=== PATIENT | female | born 1950 | race Caucasian/White ===

== ENCOUNTER → 2017-11-27 | Outpatient (CLI) | payer MEDICARE ==
--- NOTE | 2017-11-27 16:35 | BD ---
EXAMINATION TYPE: MG DEXA axial skeleton. DATE OF EXAM: 11/27/2017 COMPARISON: NONE CLINICAL HISTORY: 67 YR OLD FEMALE......ICD-10 CODE: Z13.820 POST MENOPAUSE W/O HRT Height: 61.5 Weight: 167 FRAX RISK QUESTIONS: Alcohol (3 or more units per day): NO Family History (Parent hip fracture): YES HX, UNKNOWN IF FX Glucocorticoids (More than 3mos): NO (Ex: prednisone, prednisolone, methylprednisolone, dexamethasone, and hydrocortisone). History of Fracture in Adulthood: YES Secondary Osteoporosis: NO 1. Type 1 Diabetes: NO 2. Hyperthyroidism: NO 3. Menopause before 45: NO 4. Malnutrition: NO 5. Chronic liver disease: NO Rheumatoid Arthritis: NO Current Tobacco Use: NO RISK FACTORS HISTORY OF: BOTH WRISTS AT AGE 65 YRS OLD History of Wrist Fracture: YES BOTH When: 2016 Family History of Osteoporosis: YES, HER AUNT, UNSURE ABOUT HIP FX Active: YES Diet low in dairy products/other sources of calcium: NO Postmenopausal woman: 54 YRS OLD Take estrogen and/or progesterone medications: HRT X12 YRS....LAST TAKEN 1 1/2 YRS AGO How lon YRS Hyperparathyroidism: NO Adrenal Insufficiency: NO MEDICATIONS: Additional Medications: ALDO STAT OTC SUPPLEMENT, Additional History: NONE TO NOTE, ARTHRITIS EXAM MEASUREMENTS: Bone mineral densitometry was performed using the [employer] System. Bone mineral density as measured about the Lumbar spine is: ----- L1-L4(G/cm2): 1.037 T Score Values are as follows: ----- L1: -2.1 ----- L2: -1.5 ----- L3: -0.9 ----- L4: -0.7 ----- L1-L4: -1.2 Bone mineral density FIRST BONE DENSITY STUDY AT [facility] Bone mineral density about the R hip (g/cm2): 0.897 Bone mineral density about the L hip (g/cm2): 0.956 T Score values are as follows: -----R Neck: -1.3 -----L Neck: -1.5 -----R Total: -0.9 -----L Total: -0.4 Bone mineral density NEW TO [facility] FRAX%S: THERE IS A 15.1% CHANCE OF A MAJOR OSTEOPOROTIC FX AND A 1.9% FOR HIP....PROBABILITY OF FX IN 10 YRS TIME IMPRESSION: Osteopenia (T Score between -2.5 and -1 as noted by T score values There is slightly increased risk of fracture and the patient may be considered for treatment. Re-Screen 2-5 years. NOTE: T-SCORE=SD OF THE YOUNG ADULT MEAN.
--- NOTE | 2017-12-03 13:46 | MM ---
Reason for exam: screening (asymptomatic). Last mammogram was performed 20 years and 3 months ago. Physical Findings: A clinical breast exam by your physician is recommended on an annual basis and results should be correlated with mammographic findings. MG 3D Screening Mammo W/Cad Bilateral CC and MLO view(s) were taken. No prior studies available for comparison. There are scattered fibroglandular densities. There is no discrete abnormality. ASSESSMENT: Negative, BI-RAD 1 RECOMMENDATION: Routine screening mammogram of both breasts in 1 year.
== END ==
LOC: RADMAMWWP 12:53
PROVIDERS: ATTEND Obstetrics & Gynecology
DX: Z12.31 Encounter for screening mammogram for malignant neoplasm of breast (principal); Z13.820 Encounter for screening for osteoporosis; M85.80 Other specified disorders of bone density and structure, unspecified site
CPT/HCPCS: 77063; 77067; 77080

== ENCOUNTER → 2024-03-21 | Outpatient (CLI) | payer MEDICARE ==
--- NOTE | 2024-03-21 17:02 | BD ---
EXAMINATION TYPE: Axial Bone Density DATE OF EXAM: 03/21/2024 CLINICAL HISTORY: 73 years old Female. ICD-10 CODE: N95.8 OTHER SPECIFIED MENOPAUSAL Height: 61 Weight: 193 FRAX RISK QUESTIONS: Family History (Parent hip fracture): yes History of Fracture in Adulthood: yes Secondary Osteoporosis: no RISK FACTORS HISTORY OF: History of Wrist Fracture: yes, both When: 2014 Surgery to Spine/Hip(right/left)/Wrist (right/left): no MEDICATIONS: Thyroid Medications: no Osteoporosis Medications: no EXAM MEASUREMENTS: Bone mineral densitometry was performed using the [employer] System. Bone mineral density as measured about the Lumbar spine is: ----- L1-L4(G/cm2): 1.004 T Score Values are as follows: ----- L1: -2.1 ----- L2: -2.1 ----- L3: -0.7 ----- L4: -1.2 ----- L1-L4: -1.5 Z Score Values are as follows: ----- L1: -1.1 ----- L2: -1.1 ----- L3: 0.3 ----- L4: -0.2 ----- L1-L4: -0.5 Bone mineral density has: Decreased -3.2% since study of: 11/27/2017 Bone mineral density about the R hip (g/cm2): 0.894 Bone mineral density about the L hip (g/cm2): 0.942 T Score values are as follows: -----R Neck: -1.9 -----L Neck: -1.6 -----R Total: -0.9 -----L Total: -0.5 Z Score values are as follows: -----R Neck: -0.5 -----L Neck: -0.2 -----R Total: 0.3 -----L Total: 0.7 Bone mineral density has: Decreased -0.9% since study of: 11/27/2017 FRAX%s: The graph provided illustrates a 17.4% chance for a major osteoporotic fx and a 3.7% chance f or the hips probability for fx in 10 years time. IMPRESSION: Osteopenia (T Score between -2.5 and -1). There is slightly increased risk of fracture and the patient may be considered for treatment. Re-Screen 2-5 years. NOTE: T-SCORE=SD OF THE YOUNG ADULT MEAN.
--- NOTE | 2024-03-22 16:14 | MM ---
Reason for Exam: Screening (asymptomatic). Last mammogram was performed 6 year(s) and 4 month(s) ago. Risk Values: Danyell 5 year model risk: 1.2%. NCI Lifetime model risk: 2.7%. Prior Study Comparison: 08/17/1997 Bilateral Screening Mammogram, [facility]. 08/23/1997 Right Diagnostic Mammogram, [facility]. 11/27/2017 Bilateral Screening Mammogram, [facility]. Tissue Density: There are scattered areas of fibroglandular density. Findings: Analyzed By CAD. Unchanged lateral asymmetric density on the right. There is no suspicious group of microcalcifications or new suspicious mass in either breast. Overall Assessment: Benign, BI-RAD 2 Management: Screening Mammogram of both breasts in 1 year. . Patient should continue monthly self-breast exams. A clinical breast exam by your physician is recommended on an annual basis. This exam should not preclude additional follow-up of suspicious palpable abnormalities. Note on Danyell scores and lifetime risk: 1. A Danyell score greater than 3% is considered moderate risk. If this is the case, consider specialist referral to assess eligibility for a risk reducing agent. 2. If overall lifetime risk for the development of breast cancer is 20% or higher, the patient may qualify for future screening with alternating mammogram and breast MRI. Electronically signed and approved by: Pierre Nicole M.D. Radiologist
== END | disposition home or self-care (01) ==
LOC: RADMAMWWP 12:32
PROVIDERS: ATTEND Internal Medicine
DX: Z12.31 Encounter for screening mammogram for malignant neoplasm of breast (principal); M85.89 Other specified disorders of bone density and structure, multiple sites; N95.8 Other specified menopausal and perimenopausal disorders
CPT/HCPCS: 77063; 77067; 77080

== ENCOUNTER 2024-05-11 10:02 | Day surgery (SDC) | payer MEDICARE ==
[2024-05-10 10:06] VITALS: BMI 34.9
[2024-05-11] MEDS: IV FLUID CONTINUATION 1,000 ML IV ONE (10:36)
[2024-05-11 10:40] VITALS: RESP 16; TEMP 97.3
[2024-05-11] MEDS: LACTATED RINGERS 1,000 ML BAG IV STA (10:42)
[2024-05-11] MEDS ORDERED: PROPOFOL 10 MG/ML 20 ML VIAL IV ONE (11:46)
--- NOTE | 2024-05-11 12:03 | P.PCN ---
Date of Procedure: 05/11/24 Procedure(s) Performed: BRIEF HISTORY: Patient is a 73-year-old pleasant white female scheduled for an elective colonoscopy as a part of screening for colon cancer/positive Cologuard. PROCEDURE PERFORMED: Colonoscopy with biopsy and snare polypectomy. PREOPERATIVE DIAGNOSIS: Screening for colon cancer/positive Cologuard. IV sedation per Anesthesia. PROCEDURE: After informed consent was obtained, the patient, was brought into the endoscopy unit. IV sedation was administered by Anesthesia under continuous monitoring. Digital rectal examination was normal. Initially the Olympus CF-160 flexible video colonoscope was then inserted in the rectum, gradually advanced into the cecum without any difficulty. Careful examination was performed as the scope was gradually being withdrawn. Ileocecal valve and the appendiceal orifice were visualized and appeared normal. Prep was excellent. Mucosa of the cecum, ascending colon, appeared normal. In the transverse colon there was a 3 mm sessile polyp removed with cold biopsy. In the descending colon there was a 7 mm polyp removed by cold snare polypectomy. Moderate left-sided diverticulosis seen. Rest of the transverse colon, descending colon, sigmoid colon, and rectum appeared normal. Retroflexion was performed in the rectum and no lesions were seen. The patient tolerated the procedure well. IMPRESSION: 3 mm transverse colon polyp s/p cold biopsy 7 mm descending colon polyp status post cold snare polypectomy Moderate sigmoid diverticulosis. RECOMMENDATIONS: Findings of this examination were discussed with the patient as well as her family. She was advised to follow-up with the biopsy results. If the biopsy is adenoma, recommended repeat colonoscopy in 5 years..
[2024-05-11 12:09] VITALS: BP 124/80; PULSE 67
== END 2024-05-11 12:40 | disposition home or self-care (01) ==
LOC: ORWHC2ENDO 10:02
PROVIDERS: ATTEND Internal Medicine Gastroenterology
DX: D12.3 Benign neoplasm of transverse colon (principal); D12.4 Benign neoplasm of descending colon; K57.30 Diverticulosis of large intestine without perforation or abscess without bleeding
CPT/HCPCS: 88305; 45380; 45385; J2704